=== PATIENT | female | born 1985 | race Caucasian/White ===

== ENCOUNTER → 2021-07-28 | Outpatient (CLI) | payer OTHER ==
[2021-07-28 21:39] LABS: African American GFR (CKD) 110.7 (60.0-200.0); Non-African American GFR(CKD) 95.5 (60.0-200.0)
[2021-07-28 22:07] LABS: Cancer Antigen 19-9 7.2 U/mL (0.0-34.9)
[2021-07-28 22:15] LABS: Cancer Antigen 125 9.6 U/mL (0.0-30.1)
[2021-07-28 22:53] LABS: Carcinoembryonic Antigen <0.5 ng/mL (0.0-4.9)
== END | disposition home or self-care (01) ==
LOC: LABWHC1 09:45
PROVIDERS: ATTEND Nurse Practitioner
DX: D49.0 Neoplasm of unspecified behavior of digestive system (principal); N28.9 Disorder of kidney and ureter, unspecified
CPT/HCPCS: 36415; 82378; 82565; 84520; 86301; 86304

== ENCOUNTER → 2021-07-28 | Outpatient (CLI) | payer OTHER ==
--- NOTE | 2021-07-29 12:42 | MM ---
Reason for exam: screening (asymptomatic). Baseline mammogram. History: Patient has history of other cancer at age 35. Family history of breast cancer in maternal grandmother at age 80 and breast cancer in maternal aunt at age 60. Took hormonal contraceptives for 10 years. Took progesterone for 5 years. Physical Findings: Nurse did not find any significant physical abnormalities on exam. MG 3D Screening Mammo W/Cad Bilateral CC and MLO view(s) were taken. There are scattered fibroglandular densities. Finding: There is a 15 mm microlobulated oval mass located 13 cm from the nipple in the lower quadrant, posterior, central position of the right breast. ASSESSMENT: Incomplete: need additional imaging evaluation, BI-RAD 0 RECOMMENDATION: Ultrasound of the right breast. [facility] will attempt to contact patient to return for ultrasound.
== END | disposition home or self-care (01) ==
LOC: RADMAMWWP 09:40
PROVIDERS: ATTEND Obstetrics & Gynecology
DX: Z12.31 Encounter for screening mammogram for malignant neoplasm of breast (principal); Z80.3 Family history of malignant neoplasm of breast
CPT/HCPCS: 77063; 77067

== ENCOUNTER → 2021-08-03 | Outpatient (CLI) | payer OTHER ==
--- NOTE | 2021-08-04 08:15 | USB ---
Reason for exam: additional evaluation requested from abnormal screening. History: Patient has history of other cancer at age 35. Family history of breast cancer in maternal grandmother at age 80 and breast cancer in maternal aunt at age 60. Took hormonal contraceptives for 10 years. Took progesterone for 5 years. Physical Findings: Breast exam preformed at baseline screening. US Breast Workup RT Right complete breast ultrasound includes all four quadrants, the retroareolar region and axilla. Finding demonstrates a 0.9 x 0.7 x 0.4cm benign lymph node at 7 o'clock, this may correspond to the mammographic finding but 0.5cm smaller. These results were verbally communicated with the patient and result sheet given to the patient on 08/03/21. ASSESSMENT: Incomplete: need additional imaging evaluation, BI-RAD 0 RECOMMENDATION: Special view mammogram of the right breast. (lateral view)
--- NOTE | 2021-08-04 08:17 | MM ---
Reason for exam: additional evaluation requested from abnormal screening. Last mammogram was performed less than 1 month ago. History: Patient has history of other cancer at age 35. Family history of breast cancer in maternal grandmother at age 80 and breast cancer in maternal aunt at age 60. Took hormonal contraceptives for 10 years. Took progesterone for 5 years. Physical Findings: Breast exam preformed at baseline screening. MG 3D Work Up W/Cad RT ML view(s) were taken of the right breast. Prior study comparison: July 28, 2021, bilateral MG 3d screening mammo w/cad. There are scattered fibroglandular densities. 1.3cm nodularity far posterior, possible lymph node. 6 month follow up recommended. These results were verbally communicated with the patient and result sheet given to the patient on 08/03/21. ASSESSMENT: Probably benign, BI-RAD 3 RECOMMENDATION: Follow-up diagnostic mammogram of the right breast in 6 months.
== END | disposition home or self-care (01) ==
LOC: RADUSWWP 13:04
PROVIDERS: ATTEND Obstetrics & Gynecology
DX: N64.89 Other specified disorders of breast (principal); Z85.9 Personal history of malignant neoplasm, unspecified; Z80.3 Family history of malignant neoplasm of breast; Z79.3 Long term (current) use of hormonal contraceptives
CPT/HCPCS: 77061; 77065

== ENCOUNTER → 2022-02-18 | Outpatient (CLI) | payer OTHER ==
--- NOTE | 2022-02-18 11:48 | MM ---
Reason for exam: follow-up at short interval from prior study. Last mammogram was performed 7 months ago. History: Patient has history of other cancer at age 35. Family history of breast cancer in maternal grandmother at age 80 and breast cancer in maternal aunt at age 60. Took hormonal contraceptives for 10 years. Took progesterone for 5 years. Physical Findings: A clinical breast exam by your physician is recommended on an annual basis and results should be correlated with mammographic findings. MG Diagnostic Mammo RT w CAD CC, MLO, and spot compression MLO view(s) were taken of the right breast. Prior study comparison: July 28, 2021, bilateral MG 3d screening mammo w/cad. The breast tissue is heterogeneously dense. This may lower the sensitivity of mammography. There is chronic nodularity in the right breast. ASSESSMENT: Probably benign, BI-RAD 3 RECOMMENDATION: Follow-up diagnostic mammogram of both breasts in 6 months. Back on schedule.
== END | disposition home or self-care (01) ==
LOC: RADMAMWWP 08:25
PROVIDERS: ATTEND Obstetrics & Gynecology
DX: R92.8 Other abnormal and inconclusive findings on diagnostic imaging of breast (principal); Z80.3 Family history of malignant neoplasm of breast
CPT/HCPCS: 77065

== ENCOUNTER → 2022-09-02 | Outpatient (CLI) | payer BC ==
--- NOTE | 2022-09-02 11:26 | MM ---
Reason for Exam: Follow-up at short interval from prior study. Last mammogram was performed 1 year(s) and 1 month(s) ago. Patient History: Menarche at age 15. First Full-Term at age 29. Other cancer, age 35. Patient used Progesterone for 5 years. Patient used Hormonal Contraceptives for 10 years. Maternal grandmother had breast cancer, age 80. Maternal aunt had breast cancer, age 60. Risk Values: Helen 5 year model risk: 0.3%. NCI Lifetime model risk: 10.3%. Tissue Density: There are scattered fibroglandular densities. Findings: Analyzed By CAD. There is a persistent nodularity within the posterior right breast and no significant interval change. No suspicious spiculated or lobular masses, clusters of microcalcifications, architectural distortion, or other secondary signs of malignancy are radiographically apparent. Overall Assessment: Benign, BI-RAD 2 Management: Screening Mammogram of both breasts in 1 year. A clinical breast exam by your physician is recommended on an annual basis and results should be correlated with mammographic findings. This exam should not preclude additional follow-up of suspicious palpable abnormalities. Results were given to the patient verbally at the time of exam. Electronically signed and approved by: Feroz Wilson D.O. Radiologis
== END | disposition home or self-care (01) ==
LOC: RADMAMWWP 10:34
PROVIDERS: ATTEND Obstetrics & Gynecology
DX: R92.8 Other abnormal and inconclusive findings on diagnostic imaging of breast (principal); Z80.3 Family history of malignant neoplasm of breast
CPT/HCPCS: 77062; 77066

== ENCOUNTER → 2023-06-24 | Outpatient (CLI) | payer BC, OTHER ==
[2023-06-24 13:35] LABS: Cancer Antigen 19-9 <4.0 U/mL (0.0-34.9); Carcinoembryonic Antigen <2.0 ng/mL (0.0-4.9)
[2023-06-24 14:04] LABS: Chol/HDL Ratio 4.81 Ratio; LDL Cholesterol,Calculated 133.2 mg/dL (0.0-131.0)
[2023-06-24 14:05] LABS: ALT 24 U/L (8-44); AST 24 U/L (13-35); Albumin 4.3 d/dL (3.8-4.9); Albumin/Globulin Ratio 1.48 Ratio (1.60-3.17); Alkaline Phosphatase 93 U/L (41-126); BUN/Creat Ratio 10.62 Ratio (12.00-20.00); Blood Urea Nitrogen 8.5 mg/dL (9.0-27.0); Calcium 9.4 mg/dL (8.7-10.3); Carbon Dioxide 26.7 mmol/L (21.6-31.8); Chloride 102 mmol/L (96-109); Globulin 2.9 d/dL (1.6-3.3); Glucose 101 mg/dL (70-110); Potassium 4.6 mmol/L (3.5-5.5); Sodium 139 mmol/L (135-145); Total Bilirubin 0.2 mg/dL (0.3-1.2); Total Protein 7.2 d/dL (6.2-8.2)
[2023-06-24 14:25] LABS: T4, Free (Free Thyroxine) 1.36 ng/dL (0.80-1.80)
[2023-06-24 14:34] LABS: Thyroid Peroxidase Antibodies 10.6 U/mL (0.0-33.0)
== END | disposition home or self-care (01) ==
LOC: LABWHC1 08:28
PROVIDERS: ATTEND Nurse Practitioner
DX: Z13.1 Encounter for screening for diabetes mellitus (principal); Z13.220 Encounter for screening for lipoid disorders; Z13.29 Encounter for screening for other suspected endocrine disorder; D49.0 Neoplasm of unspecified behavior of digestive system; R03.0 Elevated blood-pressure reading, without diagnosis of hypertension
CPT/HCPCS: 36415; 80053; 80061; 82378; 83036; 84439; 84443; 84480; 84481; 86301; 86304; 86376; 86800

== ENCOUNTER → 2023-10-26 | Outpatient (CLI) | payer BC ==
--- NOTE | 2023-10-26 08:31 | MM ---
Reason for Exam: Additional evaluation requested from prior study. Last mammogram was performed 1 year(s) and 2 month(s) ago. Patient History: Menarche at age 15. First Full-Term at age 29. Patient has history of breast feeding. Other cancer, age 35. Patient used Progesterone for 5 years. Patient used Hormonal Contraceptives for 10 years. Maternal grandmother had breast cancer, age 80. Maternal aunt had breast cancer, age 60. Last menstrual period: 10/11/2023 Risk Values: Helen 5 year model risk: 0.4%. NCI Lifetime model risk: 10.3%. Prior Study Comparison: 07/28/2021 Bilateral Screening Mammogram, [facility]. 08/03/2021 Right Diagnostic Mammogram, [facility]. 02/18/2022 Right Diagnostic Mammogram, [facility]. 09/02/2022 Bilateral MG 3D diag mammo w/cad [facility], [facility]. Tissue Density: There are scattered fibroglandular densities. Findings: Analyzed By CAD. Stable appearing lymph node right breast. No evidence for new mass or distortion. No suspicious calcifications. Overall Assessment: Benign, BI-RAD 2 Management: Screening Mammogram of both breasts at age 41. . Results were given to the patient verbally at the time of exam. Patient should continue monthly self-breast exams. A clinical breast exam by your physician is recommended on an annual basis. This exam should not preclude additional follow-up of suspicious palpable abnormalities. Note on Helen scores and lifetime risk: 1. A Helen score greater than 3% is considered moderate risk. If this is the case, consider specialist referral to assess eligibility for a risk reducing agent. 2. If overall lifetime risk for the development of breast cancer is 20% or higher, the patient may qualify for future screening with alternating mammogram and breast MRI. Electronically signed and approved by: Sudeep Buck M.D. Radiologis
== END | disposition home or self-care (01) ==
LOC: RADMAMWWP 07:51
PROVIDERS: ATTEND Obstetrics & Gynecology
DX: R92.323 Mammographic fibroglandular density, bilateral breasts (principal); Z80.3 Family history of malignant neoplasm of breast; Z92.0 Personal history of contraception
CPT/HCPCS: 77062; 77066